=== PATIENT | female | born 1990 ===

== ENCOUNTER 2017-11-14 19:07 | Emergency (ER) | payer OTHER ==
[~2017-11-14] VITALS: Ht 180.3 cm; Wt 78.0 kg
[2017-11-14 19:21] VITALS: Ht 180.3 cm; Wt 78.0 kg
[2017-11-14 21:18] VITALS: BP 124/89
== END 2017-11-14 21:18 | disposition home or self-care (01) ==
LOC: ED 19:07
DX: S61.512A Laceration without foreign body of left wrist, initial encounter (principal); X58.XXXA Exposure to other specified factors, initial encounter; Y93.89 Activity, other specified; Y92.89 Other specified places as the place of occurrence of the external cause; Y99.8 Other external cause status
CPT/HCPCS: 90715; J2001